=== PATIENT | female | born 1930 | race Caucasian/White ===

== ENCOUNTER 2016-09-14 18:50 | Emergency (ER) | payer OTHER, BC ==
[~2016-09-14] VITALS: Ht 157.5 cm; Wt 63.3 kg
[~2016-09-14 18:50] MED LIST: ASPIRIN81 M2 PO; AUGMENTIN875 MG PO; AVAPRO300 MG PO; BENADRYL25 MG PO; CHLORDIAZEPOXID10 MG PO; CIPRO500 MG PO; DOXYCYCLINE HY100 MG PO; FLAGYL500 MG PO; HYDRALAZINE HCL50 MG PO; KEFLEX500 MG PO; LASIX20 MG PO; LEVOTHROID,SY0.05 MG PO; LOPRESSOR50 MG PO; MOBIC7.5 MG PO; NORVASC10 M1 PO; PLAVIX75 MG PO; PRAVACHOL40 M1 PO; PROMETHAZINE HC25 M1 PO; TRAMADOL HCL50 MG PO; TRAVATAN 0.004%5 ML BOTH EYES
[2016-09-14 21:06] VITALS: BP 171/85
== END 2016-09-14 21:14 | disposition home or self-care (01) ==
LOC: EME 18:50
DX: I10 Essential (primary) hypertension (principal); Z79.82 Long term (current) use of aspirin; Z79.02 Long term (current) use of antithrombotics/antiplatelets
CPT/HCPCS: 99281; 99284

== ENCOUNTER 2017-06-18 23:36 | Observation (INO) | payer OTHER, BC ==
[~2017-06-18] VITALS: Ht 157.5 cm; Wt 60.2 kg
[~2017-06-18 23:36] MED LIST changes: +LOPRESSOR100 M1 PO; -LOPRESSOR50 MG PO
[2017-06-19 00:31] LABS: HEMATOCRIT 43.5 % (36.0-46.0); MCHC 32.9 G/DL (30.0-36.0); MCV 88.2 FL (83-99); MEAN PLAT.VOLUME 10.8 uM^3 (9.5-12.4); PLATELET COUNT 325 K/uL (156-360); RBC DIS.WIDTH-CV 13.7 % (11.8-14.6); RBC DIS.WIDTH-SD 44.3 % (39-53); RED BLOOD COUNT 4.93 M/uL (3.80-5.20); WHITE BLOOD COUNT 13.5 K/uL (4.1-10.2)
[2017-06-19 00:40] LABS: PROTHROMBIN TIME 10.9 SEC (10.2-12.9)
[2017-06-19 00:43] LABS: PTT 26.7 SEC (25-37)
[2017-06-19 00:50] LABS: CHLORIDE 102 mEq/L (99-109); POTASSIUM 4.1 mEq/L (3.7-5.4); SODIUM 141 mEq/L (136-147)
[2017-06-19 00:51] LABS: TROP-I INTERPRETATION NEGATIVE; TROPONIN-I 0.02 ng/mL (0.0-0.30)
[2017-06-19 00:52] LABS: GLUCOSE 116 mg/dL (70-99)
[2017-06-19 00:53] LABS: ANION GAP 12 MEQ/L (2-14)
[2017-06-19 00:54] LABS: TOTAL BILIRUBIN 0.6 mg/dL (0.0-1.0)
[2017-06-19 00:55] LABS: ALKALINE PHOSPHATASE 78 IU/L (3-129)
[2017-06-19 00:56] LABS: GFR ESTIMATE (CALCULATED) 45 mL/min/
[2017-06-19 00:57] LABS: UREA NITROGEN (BUN) 30 mg/dL (9-23)
[2017-06-19 00:59] LABS: LIPASE 50 U/L (1.0-51.0)
[2017-06-19 02:49] LABS: ADD MIUA? YES; BILIRUBIN NEGATIVE; BLOOD NEGATIVE; COLOR YELLOW ((YELLOW)); GLUCOSE (STRIP) NEGATIVE; KETONES NEGATIVE; LEUKOCYTES SMALL; NITRITE NEGATIVE; PROTEIN (STRIP) NEGATIVE; SPECIFIC GRAVITY 1.016 (1.000-1.030); UROBILINOGEN 0.2 MG/DL (0.2-1.0)
[2017-06-19 02:52] LABS: BACTERIA NONE SEEN /HPF; EPITHELIAL CELLS NONE SEEN /HPF; MUCUS NONE SEEN /LPF; RED BLOOD CELLS 0-5 /HPF (0-5); UCUL ADDED? NO; WHITE BLOOD CELLS 0-5 /HPF (0-5)
[2017-06-19 07:33] LABS: TROP-I INTERPRETATION NEGATIVE; TROPONIN-I 0.03 ng/mL (0.0-0.30)
[2017-06-19 07:36] VITALS: BP 163/72
[2017-06-19] MEDS ORDERED: SYNTHROID75 MCG PO (08:10)
[2017-06-19] MEDS ORDERED: LIBRIUM10 MG PO (08:14)
[2017-06-19] MEDS ORDERED: IRBESARTAN-HCT1 EAC1 PO (08:20)
[2017-06-19 12:15] VITALS: BP 106/53
[2017-06-19 12:45] LABS: TROP-I INTERPRETATION NEGATIVE; TROPONIN-I 0.03 ng/mL (0.0-0.30)
[2017-06-19] MEDS ORDERED: NORVASC2.5 MG PO (14:18)
== END 2017-06-19 16:42 | disposition home or self-care (01) ==
LOC: EME 23:36 → ENPENDDIS 06-19 → EDOF 06-19 05:59 → ENRESERV 06-19 06:01 → 5WEST 06-19 07:14
PROVIDERS: Emergency Medicine; Physician Assistant
DX: I16.0 Hypertensive urgency (principal); I10 Essential (primary) hypertension; R51 Headache; E03.9 Hypothyroidism, unspecified; D72.829 Elevated white blood cell count, unspecified; I25.10 Atherosclerotic heart disease of native coronary artery without angina pectoris; E78.5 Hyperlipidemia, unspecified; I70.1 Atherosclerosis of renal artery; K21.9 Gastro-esophageal reflux disease without esophagitis; M19.90 Unspecified osteoarthritis, unspecified site; H40.9 Unspecified glaucoma; J30.9 Allergic rhinitis, unspecified; Z96.661 Presence of right artificial ankle joint; Z79.82 Long term (current) use of aspirin
CPT/HCPCS: 70450; 71020; 80053; 81003; 83690; 84484; 85027; 85610; 85730; 93005; 99281; 99285; G0378; J0360; J0780; J1200; J2405; J7030